=== PATIENT | male | born 2000 | race Caucasian/White ===

== ENCOUNTER 2020-03-16 22:14 | Emergency (ER) | payer OTHER | END 2020-03-16 23:46 | disposition home or self-care (01) | LOC: FER 22:14 | DX: B34.9 Viral infection, unspecified (principal); Z20.822 Contact with and (suspected) exposure to COVID-19 | CPT/HCPCS: 99283; U0002 ==

== ENCOUNTER 2020-08-19 07:26 | Emergency (ER) | payer OTHER ==
[2020-08-19 09:28] LABS: BASOPHIL 0.5 % (0-2); EOSINOPHIL 3.4 % (0-5); HCT 43.7 % (42.0-52.0); HGB 14.6 g/dl (13.2-18.0); LYMPHOCYTE 20.6 % (15-48); MCH 29.3 pg (25.0-31.0); MCHC 33.4 g/dL (32.0-36.0); MCV 87.6 fL (78.0-100.0); MONOCYTE 10.8 % (0-12); MPV 10.6 fL (6.0-9.5); NEUTROPHIL 64.3 % (41-80); NRBC 0; PLT 319 K/uL (150-400); RBC 4.99 M/uL (4.70-6.00); RDW 12.9 % (11.5-14.0); WBC 10.2 K/uL (4.0-10.5)
[2020-08-19 09:56] LABS: BUN 16 mg/dL (7-18); BUN/CREAT RATIO (CALC) 18.6 RATIO; CHLORIDE 103 mmol/L (98-107); CO2 (BICARBONATE) 34 mmol/L (21-32); CREATININE 0.86 mg/dL (0.67-1.17); GLUCOSE 102 mg/dL (74-106); POTASSIUM 4.2 mmol/L (3.5-5.1)
== END 2020-08-19 11:07 | disposition home or self-care (01) ==
LOC: FER 07:26
PROVIDERS: Emergency Medicine
DX: R55 Syncope and collapse (principal)
CPT/HCPCS: 36415; 70450; 80048; 85025; G0480

== ENCOUNTER 2020-09-22 18:16 | Emergency (ER) | payer OTHER ==
[2020-09-22 19:54] LABS: BILIRUBIN NEGATIVE (NEGATIVE); BLOOD TRACE-INTACT Ery/uL (NEGATIVE); CLARITY CLEAR (CLEAR); COLOR YELLOW (YELLOW); GLUCOSE (U) NORMAL (NORMAL); LEUKOCYTES NEGATIVE Leu/uL (NEGATIVE); NITRITE NEGATIVE (NEGATIVE); PROTEIN NEGATIVE (NEGATIVE); SPECIFIC GRAVITY >=1.030 (1.001-1.030); UROBILINOGEN 0.2 mg/dL (0.2-1.0)
[2020-09-22 20:04] LABS: URINARY RBC RARE; URINARY WBC RARE
[2020-09-22 20:05] LABS: BACTERIA TRACE
[2020-09-24 19:10] LABS: CHLAMYDIA TRACHOMATIS, NAA Positive (Negative); NEISSERIA GONORRHOEAE, NAA Negative (Negative)
== END 2020-09-22 19:55 | disposition home or self-care (01) ==
LOC: FER 18:16
PROVIDERS: Nurse Practitioner Family
DX: Z20.2 Contact with and (suspected) exposure to infections with a predominantly sexual mode of transmission (principal)
CPT/HCPCS: 81001; 87491; 87591; 99283; J0696

== ENCOUNTER 2020-10-08 17:03 | Emergency (ER) | payer OTHER ==
[2020-10-08 21:33] LABS: INFLUENZA A NAA NEGATIVE (NEGATIVE)
[2020-10-08 21:40] LABS: CORONAVIRUS 2019 SARS-COV-2 POSITIVE (NEGATIVE)
== END 2020-10-08 22:05 | disposition home or self-care (01) ==
LOC: FER 17:03
PROVIDERS: Emergency Medicine
DX: U07.1 COVID-19 (principal)
CPT/HCPCS: U0002